=== PATIENT | female | born 1960 | race Caucasian/White ===

== ENCOUNTER 2018-10-05 04:53 | Emergency (ER) | payer MEDICAID, OTHER ==
[2018-10-05] MEDS ORDERED: diphenhydrAMINE 50 MG/ML SDV IM ONE (05:21)
--- NOTE | 2018-10-05 05:27 | EDM.PDOC ---
ED HPI GENERAL MEDICAL PROBLEM - General Chief Complaint: Allergic Reaction Stated Complaint: ALLERGIC REACTION Time Seen by Provider: 10/05/18 05:05 Source of Information: Reports: Patient, Family History Limitations: Reports: No Limitations - History of Present Illness INITIAL COMMENTS - FREE TEXT/NARRATIVE: 50-year-old female who had difficulty sleeping last night, got up this morning while walking into the kitchen fainted and was "unresponsive" for 1-2 minutes. She is also developing widespread hives. No shortness of breath, no nausea or vomiting, no pain or fever. Associated Symptoms: Reports: Malaise, Other (Very fatigued, didn't sleep well last night). Denies: Fever/Chills, Headaches, Loss of Appetite, Shortness of Breath - Related Data Allergies Allergy/AdvReac Type Severity Reaction Status Date / Time morphine Allergy Nausea Verified 10/05/18 05:06 Home Meds: Home Meds NK [No Known Home Meds] 10/05/18 [History] Past Medical History [employer] History: Reports: - Past Surgical History Other HEENT Surgeries/Procedures: Septoplasty Social & Family History - Family History Family Medical History: Noncontributory - Tobacco Use Smoking Status *Q: Never Smoker - Caffeine Use Caffeine Use: Reports: Coffee Caffeine Use Comment: daily coffee use, some soda - Recreational Drug Use Recreational Drug Use: No ED ROS ALLERGIC REACTION - Review of Systems Review Of Systems: See Below Constitutional: Reports: Malaise. Denies: Fever, Chills HEENT: Reports: Other (Some periorbital edema) Respiratory: Denies: Shortness of Breath, Wheezing Cardiovascular: Denies: Chest Pain GI/Abdominal: Denies: Nausea, Vomiting Skin: Reports: Urticaria Neurological: Reports: Syncope ED EXAM GENERAL NO PERIP PULSE - Physical Exam Exam: See Below Exam Limited By: No Limitations General Appearance: Alert, No Apparent Distress Eye Exam: Bilateral Eye: Periorbital Changes (Mild periorbital edema) Throat/Mouth: Normal Inspection Head: Atraumatic Respiratory/Chest: No Respiratory Distress, Lungs Clear Cardiovascular: Regular Rate, Rhythm. No: Extra Beats Extremities: No: Pedal Edema Neurological: Alert, Oriented Skin Exam: Warm, Dry, Erythema (Widespread patchy asymmetric erythematous macular lesions typical of urticaria) Course - Vital Signs Last Recorded V/S: Last Vital Signs Temp 96.9 F 10/05/18 05:11 Pulse 65 10/05/18 05:11 Resp 14 10/05/18 05:11 BP 103/51 L 10/05/18 05:11 Pulse Ox 97 10/05/18 05:11 - Orders/Labs/Meds Meds: Medications Discontinued Medications Generic Name Dose Route Start Last Admin Trade Name Bassem PRN Reason Stop Dose Admin Diphenhydramine HCl 50 mg 10/05/18 05:21 10/05/18 05:27 Benadryl IM 10/05/18 05:22 50 mg ONETIME ONE Administration - Re-Assessments/Exams Free Text/Narrative Re-Assessment/Exam: 10/05/18 05:25 patient was given 50 mg of IM Benadryl and additional Benadryl for oral doses through [employer]. She can recheck when she is home if hives or recurring. Departure - Departure Time of Disposition: 05:44 Disposition: Home, Self-Care 01 Clinical Impression: Urticaria, Syncope, vasovagal - Discharge Information Instructions: Hives, [id number] Referrals: PCP,None [Primary Care Provider] - Forms: ED Department Discharge Care Plan Goals: Rest today, repeat Benadryl 25-50 mg every 4 hours and stay hydrated. Consider rechecking in the next 24-48 hours if hives or persistent or you develop other concerns.
== END 2018-10-05 05:44 | disposition home or self-care (01) ==
LOC: JP.ED 04:53
DX: L50.9 Urticaria, unspecified (principal); R55 Syncope and collapse; Z88.5 Allergy status to narcotic agent
CPT/HCPCS: 96372; 99282; J1200